=== PATIENT | male | born 1950 | race Caucasian/White ===

== ENCOUNTER → 2018-02-04 | Outpatient (CLI) | payer MEDICARE | LOC: M OUTALCOH 12:46 | DX: Z03.89 Encounter for observation for other suspected diseases and conditions ruled out (principal) | CPT/HCPCS: H0001 ==

== ENCOUNTER 2018-02-12 10:58 | Outpatient (RCR) | payer MEDICARE | END 2018-02-27 | LOC: M OUTALCOH 10:58 | PROVIDERS: ATTEND Psychiatry & Neurology Psychiatry | DX: Z03.89 Encounter for observation for other suspected diseases and conditions ruled out (principal) ==